=== PATIENT | female | born 1990 | race Caucasian/White ===

== ENCOUNTER 2019-04-29 23:53 | Emergency (ER) | payer OTHER ==
[2019-04-30] MEDS ORDERED: Ibuprofen 600 MG Tab PO ONE (00:50)
[2019-04-30] MEDS ORDERED: Acetaminophen 325 MG Tab PO ONE (01:30)
--- NOTE | 2019-04-30 01:39 | EDM.PDOC ---
ED HPI GENERAL MEDICAL PROBLEM - General Chief Complaint: Upper Extremity Injury/Pain Stated Complaint: FELL ON ICE REINJURIED COLLAR BONE AND HIP AND FIN Time Seen by Provider: 04/30/19 00:37 Source of Information: Reports: Patient, RN Notes Reviewed - History of Present Illness INITIAL COMMENTS - FREE TEXT/NARRATIVE: 28-year-old female states she slipped on ice in her right shoulder and clavicle so has pain right hand, right hip. She denies head neck or back pain or injury. Pain or difficulty breathing. 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: Musculoskeletal History: Reports: Other (See Below) Other Musculoskeletal History: broken clavicle right Neurological History: Reports: Other (See Below) Other Neuro History: brain tumor Psychiatric History: Reports: None Endocrine/Metabolic History: Reports: None Hematologic History: Reports: None Oncologic (Cancer) History: Reports: None Dermatologic History: Reports: None Social & Family History - Tobacco Use Smoking Status *Q: Current Some Day Smoker Years of Tobacco use: 1 Packs/Tins Daily: 0.5 - Caffeine Use Caffeine Use: Reports: Energy Drinks - Recreational Drug Use Recreational Drug Use: No Review of Systems - Review of Systems Review Of Systems: See Below Constitutional: Reports: No Symptoms Eyes: Reports: No Symptoms Ears: Reports: No Symptoms Nose: Reports: No Symptoms Mouth/Throat: Reports: No Symptoms Respiratory: Denies: Shortness of Breath, Pleuritic Chest Pain Cardiovascular: Denies: Chest Pain GI/Abdominal: Denies: Abdominal Pain, Nausea, Vomiting Musculoskeletal: Reports: Shoulder Pain, Joint Pain, Other (Right hip right hand ). Denies: Back Pain Neurological: Reports: Numbness (Distal fingers right hand) ED EXAM, GENERAL - Physical Exam Exam: See Below General Appearance: Anxious, Other (Moderately intoxicated) Eye Exam: Bilateral Eye: Conjunctival Injection Ears: Normal External Exam Throat/Mouth: Normal Inspection Head: Atraumatic Neck: Supple, Non-Tender Respiratory/Chest: No Respiratory Distress, Lungs Clear, Normal Breath Sounds Cardiovascular: Regular Rate, Rhythm Extremities: Other (There is tenderness of the right shoulder, right mid and lateral clavicle. There is quite marketed swelling of the medial aspect of her clavicle on the right which patient and her states is chronic from prior injury, there is tenderness of the distal fingers of the right hand, no visible deformity. Very mild tenderness of the right lateral hip) Neurological: Alert, No Motor/Sensory Deficits Skin Exam: Warm, Dry Course - Vital Signs Last Recorded V/S: Last Vital Signs Temp 97.6 F 04/30/19 00:08 Pulse 88 04/30/19 00:08 Resp 2 L 04/30/19 00:08 BP 110/83 04/30/19 00:08 Pulse Ox 100 04/30/19 00:08 - Orders/Labs/Meds Orders: Active Orders 24 hr Category Date Time Status Clavicle Rt [CR] Stat Exams 04/30/19 00:17 Taken Hand Comp Min 3V Rt [CR] Stat Exams 04/30/19 00:51 Taken Meds: Medications Discontinued Medications Generic Name Dose Route Start Last Admin Trade Name Freq PRN Reason Stop Dose Admin Acetaminophen 975 mg 04/30/19 01:30 04/30/19 01:41 Tylenol PO 04/30/19 01:31 Not Given NOW ONE Ibuprofen 600 mg 04/30/19 00:50 04/30/19 00:57 Motrin PO 04/30/19 00:51 600 mg ONETIME ONE Administration - Re-Assessments/Exams Free Text/Narrative Re-Assessment/Exam: 04/30/19 01:33. X-rays of the clavicle do not show acute fracture. There is a lot of callus medially, there is a line, suspect nonunion. Did send to [facility] for confirmation and they agree, old ununited fracture medial R clavicle. She also is having a lot of pain right hand. X-rays of the hand are negative for fracture. She and her have been informed of all of the above. We did give motrin a while ago. It has taken some time to complete this whole process with regard to time and attention needed for a different critical patient transfer. I suspect they may be somewhat frustrated with the time delay but patient is also intoxicated. She was apparently not willing to wait for discharge instructions. I have told patient we would also give Tylenol and also provide an arm sling for comfort. Patient did not wait for the few minutes it would have taken to get that done. Of note patient was very impatient with myself and with her nurse. Departure - Departure Time of Disposition: 01:32 Disposition: Home, Self-Care 01 Condition: Fair Clinical Impression: Fall, Shoulder contusion, Hand contusion, Alcohol intoxication - Discharge Information Forms: ED Department Discharge Sepsis Event Note - Evaluation Sepsis Screening Result: No Definite Risk - Focused Exam Vital Signs: Vital Signs Temp Pulse Resp BP Pulse Ox 04/30/19 00:08 97.6 F 88 2 L 110/83 100 Date Exam was Performed: 04/30/19 Time Exam was Performed: 05:01 - My Orders Last 24 Hours: My Active Orders 04/30/19 00:17 Clavicle Rt [CR] Stat 04/30/19 00:51 Hand Comp Min 3V Rt [CR] Stat - Assessment/Plan Last 24 Hours: My Active Orders 04/30/19 00:17 Clavicle Rt [CR] Stat 04/30/19 00:51 Hand Comp Min 3V Rt [CR] Stat
--- NOTE | 2019-04-30 07:05 | CR ---
Right hand: Four views of the right hand were obtained. Comparison: No prior hand exam. Joint spaces are preserved. No fracture, dislocation or other bony abnormality is identified. Impression: 1. No abnormality is identified on right hand exam. Diagnostic code #1 This report was dictated in [place] Standard Time
--- NOTE | 2019-04-30 07:05 | CR ---
Right clavicle: Two views of the right clavicle were obtained. Ununited proximal clavicle fracture is seen. Callus is noted which does not appear to be bridging. Acromioclavicular joint is normal. No additional abnormality is seen. Impression: 1. Ununited proximal right clavicle fracture as noted above. 2. No additional abnormality is seen. Diagnostic code #3 This report was dictated in [place] Standard Time I agree with preliminary report from [facility], finalized on 04/30/19, 2:24 AM Central Time
== END 2019-04-30 01:33 | disposition left against medical advice (07) ==
LOC: JD.ED 23:53
DX: S40.011A Contusion of right shoulder, initial encounter (principal); S60.221A Contusion of right hand, initial encounter; F10.120 Alcohol abuse with intoxication, uncomplicated; F17.210 Nicotine dependence, cigarettes, uncomplicated; Z91.041 Radiographic dye allergy status; W00.0XXA Fall on same level due to ice and snow, initial encounter
CPT/HCPCS: 73000; 73130; 99283; A9270

== ENCOUNTER 2019-08-14 18:09 | Emergency (ER) | payer SELFPAY ==
--- NOTE | 2019-08-14 19:23 | EDM.PDOC ---
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 Cleveland is a pleasant 29-year-old woman with a past medical history significant for an untreated prolactinoma with subsequent osteopenia and consequential right clavicle fracture, -0-2-0, who now presents the ED stating that she had a normal menstrual period from 08/04/2019 through 08/09/2019. She then developed vaginal spotting yesterday, 08/13/2019, after having sexual intercourse. Her bleeding became even heavier today, again after additional sexual intercourse. She states that she has soaked 2 pads so far today. She states that she is passing clots, and that she has lower abdominal cramps. No prior similar symptoms. The patient states that she is not on any form of control, and she cannot rule out . Here in the ED, the patient is found to be hemodynamically stable, afebrile, saturating 100% on room air. The patient denies recent fever, chills, sore throat, ear pain, nasal or sinus congestion, cough, dyspnea, chest pain, palpitations, nausea, vomiting, constipation, diarrhea, abdominal pain, urinary symptoms, recent weight gain or weight loss, recent bloody bowel movements or black bowel movements, recent joint aches, headaches, or rashes. The patient's PCP is Dr. Jie Whitt. Her Academic Affairs Manager, whose name she does not recall, is at [facility]. 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 Para: 0 Musculoskeletal History: Reports: Fracture (right clavicle) Neurological History: Reports: Other (See Below) (Prolactinoma) Endocrine/Metabolic History: Reports: Osteopenia - Past Surgical History HEENT Surgical History: Reports: Oral Surgery (wisdom teeth extraction) Female Surgical History: Reports: Other (See Below) (Colposcopy) Social & Family History - Family History Family Medical History: Noncontributory - Tobacco Use Smoking Status *Q: Current Every Day Smoker Years of Tobacco use: 15 Packs/Tins Daily: 0.3 Packs/Tins Daily Comment: Down from 03/29 ppd - Caffeine Use Caffeine Use: Reports: None - Alcohol Use Alcohol Use History: Yes Alcohol Use Frequency: Socially - Recreational Drug Use Recreational Drug Use: No - Living Situation & Occupation Living situation: Reports: (), Other ([employer]) Occupation: Unemployed ED ROS GENERAL - Review of Systems Review Of Systems: Comprehensive ROS is negative, except as noted in HPI. ED EXAM, RENAL/ - Physical Exam Exam: See Below Exam Limited By: No Limitations General Appearance: Alert, WD/WN, No Apparent Distress Eye Exam: Bilateral Eye: EOMI, Normal Inspection Ears: Normal External Exam, Hearing Grossly Normal Nose: Normal Inspection Throat/Mouth: Normal Inspection, Normal Lips, Normal Voice, No Airway Compromise Head: Atraumatic, Normocephalic Neck: Normal Inspection, Full Range of Motion Respiratory/Chest: No Respiratory Distress, Lungs Clear, Normal Breath Sounds, No Accessory Muscle Use Cardiovascular: Normal Peripheral Pulses, Regular Rate, Rhythm, No Edema, No Gallop, No JVD, No Murmur, No Rub GI/Abdominal: Normal Bowel Sounds, Soft, No Organomegaly, No Distention, No Abnormal Bruit, No Mass, Tender (primarily suprapubic, although mild generalized tenderness) (Female) Exam: Normal External Exam, Vaginal Bleeding (small amount from a closed nulliparous cervical os) Rectal (Female) Exam: Deferred Back Exam: Normal Inspection, Full Range of Motion. No: CVA Tenderness (L), CVA Tenderness (R) Extremities: Normal Inspection, Normal Range of Motion, No Pedal Edema, Normal Capillary Refill Neurological: Alert, Oriented, Normal Cognition, No Motor/Sensory Deficits Psychiatric: Normal Affect Skin Exam: Warm, Dry, Intact, Normal Color, No Rash Course - Vital Signs Last Recorded V/S: Last Vital Signs Temp 36.8 C 08/14/19 18:39 Pulse 80 08/14/19 18:39 Resp 16 08/14/19 18:39 BP 119/91 H 08/14/19 18:39 Pulse Ox 100 08/14/19 18:39 Orthostatic Blood Pressure [ 99/60 Standing] Orthostatic Blood Pressure [ 112/86 Sitting] Orthostatic Blood Pressure [ 105/62 Supine] - Orders/Labs/Meds Orders: Active Orders 24 hr Category Date Time Status Orthostatic Vital Signs [RC] STAT Care 08/14/19 19:16 Active Orthostatic Vital Signs [RC] STAT Care 08/14/19 20:49 Active Lactated Ringers [Ringers, Lactated] 1,000 ml Med 08/14/19 20:49 Active IV .BOLUS Medication Orders Lactated Ringer's (Ringers, Lactated) 1,000 mls @ 999 mls/hr IV .BOLUS ONE Stop: 08/14/19 21:49 Labs: Laboratory Tests 08/14/19 08/14/19 Range/Units 19:25 19:25 WBC 19.37 H (3.98-10.04) K/mm3 RBC 4.85 (3.98-5.22) M/mm3 Hgb 16.0 H (11.2-15.7) gm/dl Hct 46.0 H (34.1-44.9) % MCV 94.8 (79.4-94.8) fl MCH 33.0 H (25.6-32.2) pg MCHC 34.8 (32.2-35.5) g/dl RDW Std Deviation 46.4 H (36.4-46.3) fL Plt Count 296 (182-369) K/mm3 MPV 9.6 (9.4-12.3) fl Neut % (Auto) 80.4 H (34.0-71.1) % Lymph % (Auto) 13.1 L (19.3-51.7) % Lake % (Auto) 5.0 (4.7-12.5) % Eos % (Auto) 0.7 (0.7-5.8) Baso % (Auto) 0.3 (0.1-1.2) % Neut # (Auto) 15.61 H (1.56-6.13) K/mm3 Lymph # (Auto) 2.53 (1.18-3.74) K/mm3 Lake # (Auto) 0.96 H (0.24-0.36) K/mm3 Eos # (Auto) 0.13 (0.04-0.36) K/mm3 Baso # (Auto) 0.05 (0.01-0.08) K/mm3 Manual Slide Review Abnormal smear HCG, Quant < 1.0 mIU/mL Meds: Medications Generic Name Dose Route Start Last Admin Trade Name Freq PRN Reason Stop Dose Admin Lactated Ringer's 1,000 mls @ 999 mls/hr 08/14/19 20:49 Ringers, Lactated IV 08/14/19 21:49 .BOLUS ONE Discontinued Medications Generic Name Dose Route Start Last Admin Trade Name Freq PRN Reason Stop Dose Admin Hydrocodone Bitart/Acetaminophen 2 tab 08/14/19 20:11 08/14/19 20:15 English 325-5 Mg PO 08/14/19 20:12 2 tab ONETIME ONE Administration - Re-Assessments/Exams Free Text/Narrative Re-Assessment/Exam: 08/14/19 19:16 As above, the patient finished a normal menstrual period on 08/09/2019, then began spotting yesterday after having intercourse, with heavier bleeding today, along with lower abdominal cramps. By history, she has an untreated prolactinoma which has already caused osteopenia, and may be responsible for the patient's current menstrual dysfunction. For today's purposes, I have ordered orthostatics, a CBC, and a quantitative hCG. Unfortunately, a stat prolactin level is not an option for us. We will perform a pelvic exam, and when I have the lab results back, I will contact the Lock Tender Chief Operator on-call. 08/14/19 19:59 On pelvic examination, there was a small amount of bleeding from a closed nulliparous cervical os. No vaginal lesions seen. 08/14/19 20:48 The patient is orthostatic. Her CBC is remarkable for a WBC count elevated at 19.37. Her H/H is elevated at 16.0/46.0, with the remainder of her CBC being unremarkable. Her quantitative hCG is undetectably low. East on the above, I will order 1 L of IV fluid, then recheck orthostatics. 08/14/19 21:[address] Dee at 21:00. He agreed that the patient's vaginal bleeding is likely related to hyper-prolactin. He did not recommend any additional testing here tonight. He recommended that the patient follow-up with her Academic Affairs Manager, and that if her prolactinoma is properly treated and she continues to have menstrual dysfunction, then follow-up with her PCP or a Lock Tender Chief Operator. The plan will be to discharge the patient after she is no longer orthostatic. 08/14/19 21:45 Notified by Matilde DANIELS that the patient refused the IV fluid. Test results, my conversation with Dr. Dee, and his recommendations discussed with the patient. For her discomfort, I will start her on Norflex, which has been shown to help with menstrual cramps, and prescribe a 7-day course of the same. She will then follow-up with her Academic Affairs Manager in [place]. Departure - Departure Time of Disposition: 21:47 Disposition: Home, Self-Care 01 Condition: Good Clinical Impression: Dysfunctional uterine bleeding, Prolactinoma, Orthostasis - Discharge Information *PRESCRIPTION DRUG MONITORING PROGRAM REVIEWED*: Not Applicable *COPY OF PRESCRIPTION DRUG MONITORING REPORT IN PATIENT ANDREW: Not Applicable Referrals: Jie Whitt MD [Ordering Only Provider] - Forms: ED Department Discharge Additional Instructions: You were seen in the emergency room after developing vaginal spotting yesterday , with heavier vaginal bleeding today. Work-up in the ER included blood work and positional blood pressure checks. Your blood work was unremarkable. You are not anemic. You are not . Your heart rate stuart excessively between lying and standing, a condition known as orthostasis. IV fluid was recommended, but declined. We recommend that you stay adequately hydrated. Gatorade or Powerade are best. Based on your history, physical exam, and ER test, the cause of your vaginal bleeding is most likely due to your untreated prolactinoma. You have been started on the muscle relaxant Norflex, and a prescription for Norflex has been sent to the [facility], located just south and across the [address] from [facility]. Take 1 tablet of Norflex every 12 hours, starting tomorrow morning, 08/15/2019. As discussed, we recommend that you follow-up with your field artillery operations specialist in [place] to address your prolactinoma. Only if your menstrual periods remain irregular after appropriate treatment for a prolactinoma should you follow-up with a tennis centre manager. If any other problems, please do not hesitate to return to the ER. Sepsis Event Note - Evaluation Sepsis Screening Result: No Definite Risk - Focused Exam Vital Signs: Vital Signs Temp Pulse Resp BP Pulse Ox 08/14/19 18:39 36.8 C 80 16 119/91 H 100 Date Exam was Performed: 08/14/19 Time Exam was Performed: 21:45 - My Orders Last 24 Hours: My Active Orders 08/14/19 19:16 Orthostatic Vital Signs [RC] STAT 08/14/19 20:49 Orthostatic Vital Signs [RC] STAT Lactated Ringers [Ringers, Lactated] 1,000 ml IV .BOLUS - Assessment/Plan Last 24 Hours: My Active Orders 08/14/19 19:16 Orthostatic Vital Signs [RC] STAT 08/14/19 20:49 Orthostatic Vital Signs [RC] STAT Lactated Ringers [Ringers, Lactated] 1,000 ml IV .BOLUS
[2019-08-14] MEDS ORDERED: Acetaminophen/HYDROcodone 325-5 MG Tab PO ONE (20:11)
[2019-08-14] MEDS ORDERED: Magnesium Sulfate/Water 2 GM in Premix Bag 1 BAG IV ONE (20:29)
[2019-08-14] MEDS ORDERED: Lactated Ringers 1,000 ML IV ONE (20:49)
[2019-08-14] MEDS ORDERED: Orphenadrine 100 MG Tab.ER PO STA (21:46)
== END 2019-08-14 22:00 | disposition home or self-care (01) ==
LOC: JD.ED 18:09
DX: N93.8 Other specified abnormal uterine and vaginal bleeding (principal); D35.2 Benign neoplasm of pituitary gland; F17.210 Nicotine dependence, cigarettes, uncomplicated; Z91.040 Latex allergy status
CPT/HCPCS: 36415; 84702; 85025; 99284; A9270; 99283